=== PATIENT | female | born 1990 | race American Indian/Alaskan Native ===

== ENCOUNTER 2019-07-11 19:54 | Emergency (ER) | payer SELFPAY ==
[2019-07-11 20:00] VITALS: BP 148/89
--- NOTE | 2019-07-11 21:02 | Emergency Department Report ---
Blank Doc - Documentation Documentation: 28-year-old female that presents with left leg pain and swelling. This initial assessment/diagnostic orders/clinical plan/treatment(s) is/are subject to change based on patient's health status, clinical progression and re- assessment by fellow clinical providers in the ED. Further treatment and workup at subsequent clinical providers discretion. Patient/guardians urged not to elope from the ED as their condition may be serious if not clinically assessed and managed. Initial orders include: 1- Patient sent to [facility] for further evaluation and treatment 2- doppler US
--- NOTE | 2019-07-11 23:22 | Vascular Lab Report ---
DUPLEX DOPPLER LOWER EXTREMITY VEINS, LEFT INDICATION / CLINICAL INFORMATION: leg pain. TECHNIQUE: Duplex doppler imaging was performed through the veins of the left lower extremity using venous compr ession and other maneuvers. COMPARISON: None available. FINDINGS: COMMON FEMORAL VEIN: Negative. FEMORAL VEIN: Negative. POPLITEAL VEIN: Negative. CALF VEINS: Negative. ADDITIONAL FINDINGS: None. IMPRESSION: 1. No sonographic evidence for DVT in the left lower extremity. Signer Name: Zakiya Alanis MD Signed: 07/11/2019 11:17 PM Workstation Name: [id number]
[2019-07-11] MEDS ORDERED: predniSONE 20 MG TAB PO ONE (23:31)
[2019-07-11] MEDS ORDERED: ACETAMINOPHEN 500 MG TAB PO ONE (23:31)
--- NOTE | 2019-07-12 00:06 | Emergency Department Report ---
ED Extremity Problem HPI - General Chief complaint: Extremity Injury, Lower Stated complaint: LT LEG PAIN/CONGESTION LT NASAL Time Seen by Provider: 07/11/19 21:01 Source: patient Mode of arrival: Ambulatory Limitations: No Limitations - History of Present Illness Initial comments: Patient is a 28-year-old -[place] female with no past medical history who presents to the ED with complaint of acute onset persistent nontraumatic posterior left knee pain for 2 months. Patient states that in the last 2 days the pain has worsened. Patient states that she is active in sports and usually performs strenuous physical exercises every morning at work. Patient denies chest pain, shortness of breath, fever, chills, nausea, vomiting, numbness and tingling or weakness of left leg, back pain, heavy lifting or fall and traumatic injury. MD Complaint: extremity pain (left knee), joint swelling (left knee), other (posterior left knee pain) -: Gradual, month(s) (2) Location: lower extremity (left knee), knee (left knee) History of Same: No -: Yes arthralgia, No associated dyspnea, No associated chest pain Radiation: none Severity scale (0 -10): 4 Quality: aching, sharp Consistency: constant Improves with: nothing Worsens with: weight bearing, walking, palpation Associated Symptoms: denies other symptoms. denies: chest pain, shortness of breath, fever, myalgias, arthralgias, rash - Related Data Previous Rx's Medication Instructions Recorded Last Taken Type predniSONE [Deltasone] 40 mg PO QDAY #10 tab 07/12/19 Unknown Rx traMADoL [Ultram] 50 mg PO Q6HR PRN #12 tablet 07/12/19 Unknown Rx Allergies Allergy/AdvReac Type Severity Reaction Status Date / Time aspirin Allergy Swelling Verified 07/11/19 19:58 diphenhydramine Allergy Swelling Verified 07/11/19 19:58 [From Benadryl] ibuprofen Allergy Swelling Verified 07/11/19 19:58 ED Review of Systems ROS: Stated complaint: LT LEG PAIN/CONGESTION LT NASAL Other details as noted in HPI Constitutional: denies: chills, fever Eyes: denies: eye pain, eye discharge, vision change ENT: denies: ear pain, throat pain Respiratory: denies: cough, shortness of breath, wheezing Cardiovascular: denies: chest pain, palpitations Endocrine: no symptoms reported Gastrointestinal: denies: abdominal pain, nausea, diarrhea Genitourinary: denies: urgency, dysuria, discharge Musculoskeletal: arthralgia (left posterior knee), myalgia. denies: back pain, joint swelling Skin: denies: rash, lesions Neurological: denies: headache, weakness, paresthesias Psychiatric: denies: anxiety, depression Hematological/Lymphatic: denies: easy bleeding, easy bruising ED Past Medical Hx - Past Medical History Previous Medical History?: No - Surgical History Past Surgical History?: Yes Additional Surgical History: tonsil - Social History Smoking Status: Never Smoker Substance Use Type: None - Medications Home Medications: Home Medications Medication Instructions Recorded Confirmed Last Taken Type predniSONE [Deltasone] 40 mg PO QDAY #10 tab 07/12/19 Unknown Rx traMADoL [Ultram] 50 mg PO Q6HR PRN #12 tablet 07/12/19 Unknown Rx ED Physical Exam - General Limitations: No Limitations General appearance: alert, in no apparent distress - Head Head exam: Present: atraumatic, normocephalic, normal inspection - Eye Eye exam: Present: normal appearance, PERRL, EOMI Pupils: Present: normal accommodation - ENT ENT exam: Present: normal exam, normal orophraynx, mucous membranes moist, TM's normal bilaterally, normal external ear exam - Neck Neck exam: Present: normal inspection, full ROM - Respiratory Respiratory exam: Present: normal lung sounds bilaterally. Absent: respiratory distress, wheezes, rhonchi, chest wall tenderness, accessory muscle use, prolonged expiratory - Cardiovascular Cardiovascular Exam: Present: regular rate, normal rhythm, normal heart sounds. Absent: systolic murmur, diastolic murmur, rubs, gallop - GI/Abdominal GI/Abdominal exam: Present: soft, normal bowel sounds. Absent: tenderness, guarding, hyperactive bowel sounds, hypoactive bowel sounds, organomegaly - Extremities Exam Extremities exam: Present: normal inspection, full ROM, tenderness (Palpable posterior left knee tenderness), normal capillary refill. Absent: pedal edema, joint swelling, calf tenderness - Back Exam Back exam: Present: normal inspection, full ROM. Absent: tenderness, CVA tenderness (L), muscle spasm - Neurological Exam Neurological exam: Present: alert, oriented X3, CN II-XII intact, normal gait, reflexes normal - Psychiatric Psychiatric exam: Present: normal affect, normal mood - Skin Skin exam: Present: warm, dry, intact, normal color. Absent: rash ED Course Vital Signs 07/11/19 07/11/19 19:59 21:11 Temperature 98.4 F 98.4 F Pulse Rate 81 77 Respiratory 18 18 Rate Blood Pressure 148/89 148/89 O2 Sat by Pulse 100 100 Oximetry ED Medical Decision Making - Radiology Data Radiology results: report reviewed, image reviewed Findings [facility] [address] [place] [address] Vascular Lab Report Signed Patient: JACKI JIMENEZ MR#: [id number] : 1990 Acct:[id number] Age/Sex: 28 / F ADM Date: 07/11/19 Loc: ED Attending Dr: Ordering Physician: SAKSHI MADRID NP Date of Service: 07/11/19 Procedure(s): VL venous duplex LE LT Accession Number(s): [id number] cc: SAKSHI MADRID NP DUPLEX DOPPLER LOWER EXTREMITY VEINS, LEFT INDICATION / CLINICAL INFORMATION: leg pain. TECHNIQUE: Duplex doppler imaging was performed through the veins of the left lower extremity using venous compression and other maneuvers. COMPARISON: None available. FINDINGS: COMMON FEMORAL VEIN: Negative. FEMORAL VEIN: Negative. POPLITEAL VEIN: Negative. CALF VEINS: Negative. ADDITIONAL FINDINGS: None. IMPRESSION: 1. No sonographic evidence for DVT in the left lower extremity. Signer Name: Zakiya Alanis MD Signed: 07/11/2019 11:17 PM Workstation Name: [id number] Transcribed By: JR Dictated By: Zakiya Alanis MD Electronically Authenticated By: Zakiya Alanis MD Signed Date/Time: 07/11/192316 DD/ 15 TD/TT: - Medical Decision Making This is a 28-year-old female with no past medical history who presented to the ED with acute onset persistent left posterior left knee pain for 2 months as a result of strenuous physical exercises every morning. Patient however stated that she wanted to be evaluated in the ED for any possible DVT although she did not have any risk factors for DVT. In the ED, patient is alert and oriented x3 and is not in any distress with normal vital signs. The left leg Doppler ultrasound shows no evidence of DVT. Patient was treated in the ED for pain. Patient symptoms are likely due to muscle strain or tendinitis of the left knee. Patient was discharged home on medications after the left knee was splinted with Antonio wrap. Patient was advised to return to the ED immediately if symptoms get worse, otherwise follow-up with her primary care physician in 7 to 10 days for reevaluation. - Differential Diagnosis DVT; Knee sprain; Muscle strain; tendonitis Critical care attestation.: If time is entered above; I have spent that time in minutes in the direct care of this critically ill patient, excluding procedure time. ED Disposition Clinical Impression: Tendonitis of left knee Muscle strain of left knee Qualifiers: Encounter type: initial encounter Qualified Code(s): S86.912A - Strain of unspecified muscle(s) and tendon(s) at lower leg level, left leg, initial encounter Disposition: TO HOME OR SELFCARE Is pt being admited?: No Does the pt Need Aspirin: No Condition: Stable Instructions: Muscle Strain (ED), Tendinitis (ED) Additional Instructions: Take medications with food, drink plenty of fluids and follow-up with your primary care physician in 5 to 7 days for reevaluation. Return to the ED immedi ately if symptoms get worse. Prescriptions: predniSONE [Deltasone] 40 mg PO QDAY #10 tab traMADoL [Ultram] 50 mg PO Q6HR PRN #12 tablet PRN Reason: Pain Referrals: [facility] [Outside] - 3-5 Days Time of Disposition: 00:02 Print Language: LIBERIAN
== END 2019-07-12 00:20 | disposition home or self-care (01) ==
LOC: ED 19:54
DX: S86.912A Strain of unspecified muscle(s) and tendon(s) at lower leg level, left leg, initial encounter (principal); M76.9 Unspecified enthesopathy, lower limb, excluding foot; R09.81 Nasal congestion; Z79.899 Other long term (current) drug therapy; Z88.6 Allergy status to analgesic agent; Z98.890 Other specified postprocedural states; X58.XXXA Exposure to other specified factors, initial encounter; Y93.89 Activity, other specified; Y92.89 Other specified places as the place of occurrence of the external cause; Y99.8 Other external cause status
CPT/HCPCS: 93971; 99283; J7512